=== PATIENT | female | born 1975 | race Caucasian/White ===

== ENCOUNTER 2019-02-17 08:56 | Emergency (ER) | payer MEDICAID ==
[~2019-02-17] VITALS: Ht 157.5 cm; Wt 615.1 kg
[2019-02-17 09:40] VITALS: BP 158/76; Ht 157.5 cm; Wt 615.1 kg
== END 2019-02-17 11:45 | disposition home or self-care (01) ==
LOC: ED 08:56
DX: K60.2 Anal fissure, unspecified (principal); K64.4 Residual hemorrhoidal skin tags; I10 Essential (primary) hypertension